=== PATIENT | female | born 1955 | race Caucasian/White ===

== ENCOUNTER → 2016-03-20 | Outpatient (CLI) | payer OTHER ==
[~2016-03-20] MED LIST: BIOT1CAP8 PO; CALC500T83; CHOL400T5 PO; GLUCTAB18 PO; MELO7.5T5 PO; VITACAP26 PO
--- NOTE | 2016-03-20 15:10 | MAMMOGRAPHY REPORT ---
BILATERAL DIGITAL SCREENING MAMMOGRAM WITH CAD: 03/20/2016 CLINICAL HISTORY: Routine screening examination. TECHNIQUE: Bilateral CC and MLO views were obtained. Current study was also evaluated with a Comput er Aided Detection (CAD) system. COMPARISON: Comparison is made to exams dated: 03/04/2015 mammogram, 02/25/2013 mammogram, 02/13/20 12 mammogram, 02/07/2011 ultrasound, 01/25/2010 mammogram, and 01/14/2009 mammogram - [facility]. BREAST COMPOSITION: The tissue of both breasts is heterogeneously dense, which may obscure small ma sses. FINDINGS: There are diffuse bilateral benign-appearing microcalcifications. The parenchymal pattern is unchanged. No new suspicious mass, architectural distortion or cluster of microcalcifications i s seen. IMPRESSION: ACR BI-RADS CATEGORY 1: NEGATIVE There is no mammographic evidence of malignancy. A 1 year screening mammogram is recommended. The p atient will receive written notification of the results. Approximately 10% of breast cancers are not detected with mammography. A negative mammographic repor t should not delay biopsy if a clinically suggestive mass is present. Radha Newton M.D. ay/:03/20/2016 14:55:39 Marine Railway Operator: Cassy TRAORE(Moose)([place]abella), [facility] letter sent: Normal 1/2 BI-RADS Code: ACR BI-RADS Category 1: Negative
== END | disposition home or self-care (01) ==
LOC: C.MAMM 10:06
PROVIDERS: ATTEND Internal Medicine
DX: Z12.31 Encounter for screening mammogram for malignant neoplasm of breast (principal)

== ENCOUNTER → 2016-04-05 | Outpatient (CLI) | payer OTHER | END | disposition home or self-care (01) | LOC: C.PAPS 08:28 | PROVIDERS: ATTEND Obstetrics & Gynecology | DX: Z01.419 Encounter for gynecological examination (general) (routine) without abnormal findings (principal); N95.8 Other specified menopausal and perimenopausal disorders; N72 Inflammatory disease of cervix uteri ==

== ENCOUNTER → 2016-08-07 | Outpatient (CLI) | payer OTHER ==
[2016-08-07 17:01] LABS: BASO % 0.5 %; BASO ABS # 0.02 K/uL (0-0.2); COMPLETE YES; EOS % 1.6 %; IG% 0.2 %; LYMPH % 26.7 %; LYMPH ABS # 1.16 K/uL (1.2-3.4); MEAN CELL VOLUME 88.4 fL (80-100); MEAN CORPUSCULAR HEMOGLOBIN 29.3 pg (25-34); MEAN CORPUSCULAR HGB CONC 33.1 g/dl (32-36); MONO % 4.4 %; NEUT % 66.6 %; PLATELET COUNT 263 K/uL (130-400); RED BLOOD COUNT 4.41 M/uL (4.2-5.4); WHITE BLOOD COUNT 4.34 K/uL (4.8-10.8)
[2016-08-07 17:26] LABS: AST/SGOT 15 U/L (15-37); BLOOD UREA NITROGEN 24 mg/dl (7-18); BUN/CREATININE RATIO 32.5 (10-20); CALCIUM 9.1 mg/dl (8.5-10.1); CARBON DIOXIDE 29 mmol/L (21-32); CHLORIDE 107 mmol/L (98-107); CREATININE 0.73 mg/dl (0.60-1.20); GLUCOSE 115 mg/dl (70-99); SODIUM 143 mmol/L (136-145)
[2016-08-07 17:27] LABS: ALT/SGPT 20 U/L (12-78)
== END | disposition home or self-care (01) ==
LOC: C.LABBC 15:07
PROVIDERS: ATTEND Internal Medicine
DX: Z13.0 Encounter for screening for diseases of the blood and blood-forming organs and certain disorders involving the immune mechanism (principal); Z79.1 Long term (current) use of non-steroidal anti-inflammatories (NSAID)

== ENCOUNTER → 2016-11-21 | Outpatient (CLI) | payer OTHER ==
--- NOTE | 2016-11-21 15:39 | DIAGNOSTIC IMAGING REPORT ---
MRI OF THE LUMBAR SPINE WITHOUT IV CONTRAST CLINICAL HISTORY: Low back pain. Bilateral leg pain. COMPARISON STUDY: Abdominal CT dated 04/23/2015. Radiographs of the lumbar spine dated 04/22/2015. TECHNIQUE: MRI of the lumbar spine is performed utilizing various T1 and T2-weighted sequences in the axial and sagittal planes. IV contrast was not administered for this examination. FINDINGS: Lumbar spine: Vertebral body height and alignment are maintained throughout the lumbar spine. The transverse and spinous processes appear intact. There is no evidence of spondylolysis. No destructive bony lesion is seen. Intervertebral discs: There is degenerative disc desiccation seen throughout the lumbar spine. Mild loss of height is seen at L3-L4, L4-L5, and L5-S1. Spinal cord: The visualized spinal cord is normal in morphology and signal intensity. The conus medullaris terminates at the L1-L2 interspace. The nerve roots of the cauda equina are normal in morphology. L1-L2: Unremarkable. L2-L3: Unremarkable. L3-L4: There is minimal posterior disc bulge. The central canal is patent. Facet arthropathy is of no consequence. The neural foramina are clear. Minimal bilateral subarticular stenosis is observed. L4-L5: There is broad-based posterior disc bulge eccentric to the left with annular fissure. In conjunction with hypertrophy of the ligamentum flavum, this contributes to mild acquired compromise of the central canal at this level with a minimum AP diameter of 9 mm. There is bilateral subarticular stenosis, left greater than right. The disc bulge likely impinges on the transiting left L5 nerve root. Facet arthropathy is of no consequence. The neural foramina are clear. L5-S1: The central canal and neural foramina are patent. Mild facet arthropathy is of no consequence. Sacrum: The visualized sacrum is normal in morphology and signal intensity. A 1.6 cm Tarlov's cyst is incidentally noted at the level of S2. Soft tissues: The paraspinous soft tissues are within normal limits. The partially imaged retroperitoneal structures are grossly normal, but incompletely assessed. IMPRESSION: 1. Mild lumbosacral spondylosis as detailed above. This is greatest at L4-L5 where there is mild acquired compromise of the central canal. See discussion for detailed level by level analysis. 2. No bony abnormality is seen. Dictated: 11/21/2016 3:28 PM Transcribed: 11/21/2016 3:39 PM [email or web address] Electronically signed by: Fabrice Birch M.D. 11/21/2016 3:54 PM Dictated Date/Time: 11/21/2016 3:28 PM
== END | disposition home or self-care (01) ==
LOC: C.MRIBC 14:32
PROVIDERS: ATTEND Pain Medicine Interventional Pain Medicine
DX: M54.31 Sciatica, right side (principal); M47.817 Spondylosis without myelopathy or radiculopathy, lumbosacral region

== ENCOUNTER → 2017-05-09 | Outpatient (CLI) | payer OTHER ==
--- NOTE | 2017-05-10 14:42 | MAMMOGRAPHY REPORT ---
BILATERAL DIGITAL SCREENING MAMMOGRAM TOMOSYNTHESIS WITH CAD: 05/09/2017 CLINICAL HISTORY: Routine screening. Patient has no complaints. TECHNIQUE: Breast tomosynthesis in addition to standard 2D mammography was performed. Current study was also evaluated with a Computer Aided Detection (CAD) system. COMPARISON: Comparison is made to exams dated: 03/20/2016 mammogram, 03/04/2015 mammogram, 02/26/2014 mammogram, 02/25/2013 mammogram, 02/13/2012 mammogram, and 02/06/2012 mammogram - [facility]. BREAST COMPOSITION: The tissue of both breasts is heterogeneously dense, which may obscure small mas ses. FINDINGS: There is stable nodularity in the upper inner posterior right breast, and diffuse bilateral microcalcifications. No obvious new mass, architectural distortion or cluster of new, suspicious mi crocalcifications is seen. IMPRESSION: ACR BI-RADS CATEGORY 1: NEGATIVE There is no mammographic evidence of malignancy. A 1 year screening mammogram is recommended. The pa tient will receive written notification of the results. Approximately 10% of breast cancers are not detected with mammography. A negative mammographic report should not delay biopsy if a clinically suggestive mass is present. Radha Newtno M.D. ay/:05/09/2017 18:51:46 [employer]: Cassy MILES)(Isabella), [facility] letter sent: Normal 1/2 BI-RADS Code: ACR BI-RADS Category 1: Negative
== END | disposition home or self-care (01) ==
LOC: C.MAMM 10:15
PROVIDERS: ATTEND Internal Medicine
DX: Z12.31 Encounter for screening mammogram for malignant neoplasm of breast (principal)